=== PATIENT | female | born 1950 | race Caucasian/White ===

== ENCOUNTER → 2016-07-27 | Outpatient (CLI) | payer OTHER ==
[2015-04-15 07:24] VITALS: BP 119/73
[~2016-07-27] MED LIST: ALBU2.5V5 NEB; AMLO10TA2 PO; ATOR20TA PO; BACL10TA PO; BUDE10.2 IH; FLUO40CA9 PO; LISI-334 PO; LOSA50TA2 PO; METO50TA2 PO; MIRT30TA PO; NICO1PAT25 TP; PRED20TA PO; TRAZ100T12 PO; VENTOLIN HFA18 GM IH; Warfarin Sodium MC; ZOLP10TA PO
--- NOTE | 2016-07-27 13:44 | KCIC ---
Renal ultrasound Indication: Reason For Study Reason: CKD STAGE 3 / Spl. Instructions: / History: TECHNIQUE Multiple real-time grayscale sonographic images were obtained over the kidneys and bladder. FINDINGS The right kidney is normal in size measuring 11.6 x 4.3 x 4 pointcentimeters. There is no evidence for mass, hydronephrosis, or nephrolithiasis. The parenchyma is diffusely hyper echogenic. The left kidney is normal in size measuring 11.9 x 4.8 x 4.5 centimeters. There is no evidence for mass, hydronephrosis, or nephrolithiasis. The parenchyma appears diffusely hyperechogenic. Urinary bladder is within normal limits. IMPRESSION No evidence for renal mass or hydronephrosis. There is increased echogenicity of the renal parenchyma which is nonspecific but can be seen in patients with chronic medical renal disease. Electronically signed by: Diaz Reno (Jul 27, 2016 13:43:28)
== END | disposition home or self-care (01) ==
LOC: KCIC US 12:59
PROVIDERS: ATTEND Family Medicine
DX: N18.3 Chronic kidney disease, stage 3 (moderate) (principal); N28.89 Other specified disorders of kidney and ureter
CPT/HCPCS: 76770

== ENCOUNTER → 2017-10-29 | Outpatient (CLI) | payer OTHER | END | disposition home or self-care (01) | LOC: KCIC MRI 09:27 | DX: H54.3 Unqualified visual loss, both eyes (principal); I13.0 Hypertensive heart and chronic kidney disease with heart failure and stage 1 through stage 4 chronic kidney disease, or unspecified chronic kidney disease; I50.9 Heart failure, unspecified; N18.3 Chronic kidney disease, stage 3 (moderate); R29.6 Repeated falls; Z86.73 Personal history of transient ischemic attack (TIA), and cerebral infarction without residual deficits; Z87.891 Personal history of nicotine dependence | CPT/HCPCS: 70551 ==

== ENCOUNTER → 2017-11-08 | Outpatient (CLI) | payer MEDICARE, OTHER | END | disposition home or self-care (01) | LOC: US 09:23 | DX: I65.23 Occlusion and stenosis of bilateral carotid arteries (principal) | CPT/HCPCS: 93880 ==

== ENCOUNTER → 2018-04-29 | Outpatient (CLI) | payer MEDICARE, OTHER ==
[2018-01-09 11:00] VITALS: BP 114/52
[~2018-04-29] MED LIST changes: -AMLO10TA2 PO; +AMLO10TA6 PO; +CHOL500050 PO; +CIPR250T30 PO; -METO50TA2 PO; +METO50TA6 PO; +TRAZ-86 PO; -TRAZ100T12 PO
--- NOTE | 2018-04-29 15:22 | KCIC ---
Three-view right knee study Clinical indications: Right knee pain. Pain is located anteriorly and medially. Pain is been present for the last recent weeks. FINDINGS: No acute fracture or dislocation or osteolytic process is evident. There is severe joint space narrowing with [id number] interface and prominent spurring of the medial tibiofemoral joint compartment. There is mild spurring without joint space narrowing of the lateral tibiofemoral joint compartment. There is mild spurring of the patellofemoral joint compartment. Small right knee joint effusion is seen. Calcified arterial atheromatous disease is evident. IMPRESSION: Tricompartmental primary degenerative osteoarthritis of the right knee most severely involving the medial tibiofemoral joint compartment with loss of joint space and [id number]-[id number] interface. Electronically signed by: Thuan White MD (04/29/2018 3:19 PM) [facility] [place]
== END | disposition home or self-care (01) ==
LOC: KCIC 12:42
PROVIDERS: ATTEND Family Medicine
DX: M17.11 Unilateral primary osteoarthritis, right knee (principal); G62.9 Polyneuropathy, unspecified; E78.00 Pure hypercholesterolemia, unspecified; I10 Essential (primary) hypertension; J44.9 Chronic obstructive pulmonary disease, unspecified; E66.9 Obesity, unspecified; F17.200 Nicotine dependence, unspecified, uncomplicated; Z79.899 Other long term (current) drug therapy
CPT/HCPCS: 73562

== ENCOUNTER → 2018-08-06 | Outpatient (CLI) | payer MEDICARE, OTHER ==
[2018-01-09 11:00] VITALS: BP 114/52
[~2018-08-06] MED LIST changes: +LOSA-73 PO; -LOSA50TA2 PO
--- NOTE | 2018-08-06 14:32 | KCIC ---
Bone mineral density exam History: Postmenopausal, history of adult fracture Comparison: None Findings: Bone mineral density examination utilizing DEXA was performed. Left hip bone mineral density of 0.864 g/cm2 corresponds with a T score -0.6, Z score 0.7. The bone mineral density of the lumbar spine was 1.129 g/cm2 which corresponds with a T-score of 0.7, Z score 2.6 By World [employer] on Osteoporosis criteria, a T score of 0 to-1 SD is considered to be within normal limits. A T score of -1 to -2.5 SD is considered osteopenia. A T score less than -2.5 SD is considered osteoporosis Impression: 1. There is normal bone density of the lumbar spine and the left hip. Electronically signed by: Manuel Patiño MD (08/06/2018 2:27 PM) [facility]
== END | disposition home or self-care (01) ==
LOC: KCIC DEXA 11:34
PROVIDERS: ATTEND Family Medicine
DX: N95.9 Unspecified menopausal and perimenopausal disorder (principal); Z91.89 Other specified personal risk factors, not elsewhere classified
CPT/HCPCS: 77080

== ENCOUNTER 2019-10-13 13:33 | Emergency (ER) | payer MEDICARE, OTHER ==
[~2019-10-13] VITALS: Ht 160 cm; Wt 91.0 kg
[~2019-10-13 13:33] MED LIST changes: -AMLO10TA6 PO; +AMLO10TA8 PO; +TRAZ-123 PO; -TRAZ-86 PO
--- NOTE | 2019-10-13 16:32 | RAD ---
PROCEDURE: WRIST 3V LEFT, HAND LEFT 3V STUDY DATE: 10/13/2019 CLINICAL INDICATION / HISTORY: Fall and left hand pain. TECHNIQUE: PA, lateral and oblique views of the left hand. COMPARISON: Left wrist x-rays same day FINDINGS: No fracture or dislocation is identified in the bones of the left hand. The bone density is normal. The joint spaces are maintained, and there are no erosions to suggest an inflammatory arthropathy. The soft tissues are unremarkable. IMPRESSION: No acute osseous abnormality in the left hand. However, see same day left wrist x-rays for additional details. PROCEDURE: WRIST 3V LEFT, HAND LEFT 3V STUDY DATE: 10/13/2019 CLINICAL INDICATION / HISTORY: Fall and left wrist pain. TECHNIQUE: Left wrist 3 views. AP, lateral, and oblique views. COMPARISON: Left hand x-rays same day FINDINGS: There is an acute comminuted impacted fracture of the distal left radius with dorsal displacement of the distal fracture fragment by at least half shaft widths distance. A nondisplaced ulnar styloid process fracture is also evident. There is associated diffuse soft tissue swelling in the left wrist. Additional curvilinear calcifications on the volar aspect of the left wrist could reflect early arterial vascular calcifications. IMPRESSION: Acute displaced, impacted and comminuted distal radial fracture and associated nondisplaced ulnar styloid process fracture of the left wrist. Electronically signed by: Keyshawn German MD (10/13/2019 4:29 PM) [id number]
--- NOTE | 2019-10-13 17:27 | PHYS DOC ---
Past Medical History Past Medical History: A-Fib, Asthma, Bronchitis, COPD, CVA Past Surgical History: No Surgical History Smoking Status: Never Smoker Alcohol Use: None Drug Use: None Adult General Chief Complaint Chief Complaint: UPPER EXTREMITY PAIN HPI HPI Patient is a 69 year old female presenting to the ED with a chief complaint of fall on an outstretched arm. Patient has swelling and tenderness to the left wrist and left hand. Patient states that she fell last night when her chair she was sitting on rocked forward she stopped her fall by putting on her left wrist. Patient states that even today she fell again and tried to stop her fall with her left wrist. Patient denies any other injuries. Review of Systems Review of Systems Patient denies fever, chills, nausea, vomiting, diarrhea, dysuria, chest pain, [place]. Patient is complaining of pain to her left wrist All other systems were reviewed and found to be within normal limits, except as documented in this note. Current Medications Current Medications Current Medications Medications (Trade) Dose Ordered Sig/Zion Start Time Stop Time Status Last Admin Dose Admin Morphine Sulfate (Morphine Sulfate) 4 mg STK-MED ONCE 10/13/19 18:24 10/13/19 18:24 DC Ondansetron HCl (Zofran) 4 mg STK-MED ONCE 10/13/19 18:24 10/13/19 18:24 DC Propofol 20 ml @ 0 mls/hr 1X ONCE 10/13/19 18:00 10/13/19 18:01 DC Allergies Allergies Allergies Coded Allergies Type Severity Reaction Last Updated Verified Penicillins Allergy Intermediate 04/07/15 Yes meperidine Allergy Intermediate 04/07/15 Yes Physical Exam Physical Exam Constitutional: Well developed, well nourished, no acute distress, non-toxic appearance. [] HENT: Normocephalic, atraumatic Eyes: PERRLA, EOMI, conjunctiva normal, no discharge. [] Neck: Normal range of motion Lungs & Thorax: No respiratory distress Extremities: Tenderness, swelling to the left wrist and left hand. Neurovascularly intact. Neurologic: Alert and oriented X 3, Current Patient Data Vital Signs Vital Signs Date Time Temp Pulse Resp B/P (MAP) Pulse Ox O2 Delivery O2 Flow Rate FiO2 10/13/19 16:04 98.3 98 20 143/96 (112) 94 Room Air 98.3 EKG EKG [] Radiology/Procedures Radiology/Procedures [] Impressions: X-ray of the left wrist shows IMPRESSION: Acute displaced, impacted and comminuted distal radial fracture and associated nondisplaced ulnar styloid process fracture of the left wrist. X-ray of the left hand shows no acute fractures Course & Med Decision Making Course & Med Decision Making Pertinent Imaging studies reviewed. (See chart for details) Ordered x-ray of the left hand and left wrist. Left wrist x-ray shows a comminuted impacted fracture of the left distal radius. Also a fracture of the ulnar styloid is seen as well. I patient orthopedic on-call to discuss this with them. Discussed case with Dr. Evans. Patient prefers to be admitted to the hospital to have this operated on. Patient would be admitted to Dr. Reynaga. Dr. Evans said that he would discuss with Dr. Reynaga and call me back Patient states that she takes Coumadin for atrial fibrillation. States that she did not take her Coumadin today. . Dr. Evans discussed with Dr. Reynaga and they both agreed that it was not a good idea to admit the patient considering the coronavirus pandemic and patient's chronic health issues. I will perform a closed reduction in the ER, placed a splint and patient will follow up with Dr. Evans as an outpatient. I given patient propofol 80 mg IV. She was also given morphine 4 mg IV and Zofran 4 mg IV , Pulse performed before procedure Closed reduction performed on the fractured wrist She tolerated procedure without any competitions Sugar tong splint applied. Post splint application shows that patient has good capillary refill, neurovascularly intact Patient to follow-up with Dr. Evans as an outpatient. Discussed results and plan of care with patient Patient is instructed to follow up with PCP in one to 2 days. Appropriate discharge instructions given to patient to return to the ED or to seek immediate medical evaluation. Patient is instructed to return to the ED if symptoms worsen or if any concerns. Dragon Disclaimer Dragon Disclaimer This electronic medical record was generated, in whole or in part, using a voice recognition dictation system. Departure Departure Impression: Primary Impression: Left wrist fracture Disposition: HOME, SELF-CARE Condition: IMPROVED Referrals: MEENA REYNAGA MD (PCP) IVANNA EVANS MD Please call office tomorroe on October 14, 2019. Patient Instructions: Cast or Splint Care, Wrist Exercises, Generic-SportsMed Scripts Hydrocodone/Apap 5-325 (NORCO 5-325 TABLET) 1 Each Tablet 1 EACH PO PRN Q6HRS PRN for PAIN, #15 TAB as needed for pain Prov: NAVYA BERGERON DO 10/13/19 NAVYA BERGERON DO Oct 13, 2019 17:27
[2019-10-13] MEDS ORDERED: PROPOFOL 20 ML IV ONE (18:00)
[2019-10-13 18:08] VITALS: BP 172/92
[2019-10-13] MEDS ORDERED: ONDANSETRON PF 4 MG/2 ML VIAL. ONE (18:24)
[2019-10-13] MEDS ORDERED: MORPHINE SULFATE 4 MG/ML VIAL. ONE (18:24)
[2019-10-13] MEDS ORDERED: ONDANSETRON PF 4 MG/2 ML VIAL. IVP ONE (18:26)
[2019-10-13] MEDS ORDERED: MORPHINE SULFATE 4 MG/ML VIAL. IV ONE (18:26)
[2019-10-13] MEDS ORDERED: HYDR-3164 PO (18:54)
[2019-10-13 18:57] VITALS: BP 166/85
== END 2019-10-13 19:15 | disposition home or self-care (01) ==
LOC: ER 13:33
DX: S62.102A Fracture of unspecified carpal bone, left wrist, initial encounter for closed fracture (principal); J44.9 Chronic obstructive pulmonary disease, unspecified; I48.91 Unspecified atrial fibrillation; Z86.73 Personal history of transient ischemic attack (TIA), and cerebral infarction without residual deficits; Z88.0 Allergy status to penicillin; Z88.1 Allergy status to other antibiotic agents; W18.39XA Other fall on same level, initial encounter; Y93.89 Activity, other specified; Y92.89 Other specified places as the place of occurrence of the external cause; Y99.8 Other external cause status
CPT/HCPCS: 25605; 73110; 73130; 99285; J2704

== ENCOUNTER → 2020-10-07 | Outpatient (CLI) | payer OTHER, MEDICARE ==
[~2020-10-07] MED LIST changes: +AMLO-187 PO; -AMLO10TA8 PO; +HYDR-3164 PO; -LISI-334 PO; +LISI20TA18 PO; +MIRT-34 PO; -MIRT30TA PO
--- NOTE | 2020-10-07 13:13 | KCIC ---
Left ankle 3 views. HISTORY: Pain after a fall 3 views were taken of of the left ankle. There is a fracture through the medial malleolus with mild d isplacement. There is soft tissue swelling. There is arthritis at the tarsal joints. IMPRESSION: 1. Fracture left medial malleolus. Electronically signed by: Victorino Alcazar MD (10/07/2020 1:10 PM) [facility]
== END ==
LOC: KCIC 12:35
PROVIDERS: ATTEND Family Medicine
DX: S82.52XA Displaced fracture of medial malleolus of left tibia, initial encounter for closed fracture (principal); X58.XXXA Exposure to other specified factors, initial encounter; Y93.89 Activity, other specified; Y92.89 Other specified places as the place of occurrence of the external cause; Y99.8 Other external cause status; M19.072 Primary osteoarthritis, left ankle and foot; M79.89 Other specified soft tissue disorders
CPT/HCPCS: 73610